=== PATIENT | female | born 1955 | race Caucasian/White ===

== ENCOUNTER 2017-11-02 10:18 | Day surgery (SDC) | payer OTHER ==
[~2017-11-02] VITALS: Ht 170.2 cm; Wt 80.5 kg
[~2017-11-02 10:18] MED LIST: CEPH500 PO; HYDACE5 PO; Keflex500 MG PO; Norco 5-325 Ta1 EACH PO
== END 2017-11-02 12:03 | disposition home or self-care (01) ==
LOC: ORSCSDS 10:18
PROVIDERS: Surgery
PROC: 0DJD8ZZ Inspection of Lower Intestinal Tract, Via Natural or Artificial Opening Endoscopic (ICD-10-PCS; principal; 2017-11-02 11:30)
DX: Z12.11 Encounter for screening for malignant neoplasm of colon (principal)
CPT/HCPCS: J7120

== ENCOUNTER 2024-10-11 08:26 | Day surgery (SDC) | payer OTHER ==
[~2024-10-11] VITALS: Ht 170.2 cm; Wt 74.1 kg
[~2024-10-11 08:26] MED LIST changes: +Balanced Salt Epinephrine Irrigation Solution 500 mL IR SCH; +Diazepam 10 MG Tab ONE; +Diazepam 5 MG Tab PO PRN; +Diazepam 5 MG Tab PO SCH; +Lidocaine HCl/Pf 1% 5 ML VIAL ONE; +Lidocaine HCl/Pf 1% 5 ML VIAL XX SCH; +Moxifloxacin HCL 0.5 MG/0.1 ML 0.4MLSYR LEFTEYE SCH; +Ondansetron 4 MG SoluTab MM PRN; +PHENYLEPHRINE\\TROPICAMIDE\\TETRACAINE OPHTHALMIC DILATING SOLN LEFTEYE PRN; +Povidone-Iodine 450 DROP/30 ML Solution LEFTEYE SCH; +Povidone-Iodine 450 DROP/30 ML Solution ONE; +Tetracaine HCl/Pf 0.5% Opth Soln 4 ml ONE; +Triamcinolone Inj Susp 40 MG / ML 1ML Vial INJ SCH; +Triamcinolone Inj Susp 40 MG / ML 1ML Vial ONE
--- NOTE | 2024-10-11 08:40 | NUR ---
10/11/24 0840 Nya Jewell 0839: ANXIETY 10/07 PER PATIENT
[2024-10-11] MEDS ORDERED: ROSUVASTATIN CA10 MG PO (08:43)
[2024-10-11] MEDS ORDERED: MELO7.5 PO (08:43)
[2024-10-11] MEDS ORDERED: Tetracaine HCl 0.5% Opth Soln 15 ml LEFTEYE ONE (09:24)
--- NOTE | 2024-10-11 09:28 | NUR ---
10/11/24 0928 Michele Muhammad N 152/83 20 97% 8L BLOW BY O2 80
[2024-10-11 09:46] VITALS: BP 149/74
--- NOTE | 2024-10-11 09:51 | NUR ---
10/11/24 0951 Valeria Jon CALLED AND NOTIFIED PATIENT IS DONE
== END 2024-10-11 10:05 | disposition home or self-care (01) ==
LOC: ORSCSDS 08:26
PROVIDERS: Ophthalmology
PROC: 08RK3JZ Replacement of Left Lens with Synthetic Substitute, Percutaneous Approach (ICD-10-PCS; principal; 2024-10-11 09:30)
DX: H25.812 Combined forms of age-related cataract, left eye (principal); Z96.1 Presence of intraocular lens; H35.3211 Exudative age-related macular degeneration, right eye, with active choroidal neovascularization; H35.3121 Nonexudative age-related macular degeneration, left eye, early dry stage; H40.051 Ocular hypertension, right eye; Z79.899 Other long term (current) drug therapy
CPT/HCPCS: A9270; J2003; J3301; V2632